=== PATIENT | male | born 1955 | race Caucasian/White ===

== ENCOUNTER 2020-06-07 13:58 | Outpatient (REF) | payer OTHER, SELFPAY ==
[2020-06-07 19:24] LABS: Anion Gap 11.2 mmol/L (3-11); BUN 19 mg/dL (7-18); CO2 24.8 mmol/L (21.0-32.0); CREATININE 0.78 mg/dL (0.70-1.30); Calcium 9.3 mg/dL (8.5-10.1); Calculated LDL 50 mg/dL (<100); Chloride 104 mmol/L (98-107); Cholesterol 132 mg/dL (<200); Glucose 84 mg/dL (74-106); HDL Cholesterol 58 mg/dL (40-60); Potassium 4.4 mmol/L (3.5-5.1); Sodium 140 mmol/L (136-145); Triglyceride 124 mg/dL (<150)
[2020-06-10 09:35] LABS: PSA, Screening 0.4 ng/mL (0-4.5)
== END 2020-06-07 14:18 ==
LOC: NCHCN 13:58
PROVIDERS: PCP Physician Assistant; Visit Provider Physician Assistant
DX: Z00.00 Encounter for general adult medical examination without abnormal findings (principal); Z13.220 Encounter for screening for lipoid disorders; Z13.228 Encounter for screening for other metabolic disorders; Z12.5 Encounter for screening for malignant neoplasm of prostate
CPT/HCPCS: 80048; 80061; 84153

== ENCOUNTER 2020-08-10 01:59 | Outpatient (CLI) | payer OTHER, SELFPAY ==
--- NOTE | 2020-08-10 09:11 | DI.RAD_ITS ---
EXAM: XR CHEST 2V PA LATERAL CLINICAL HISTORY: ATRIAL FIBRILLATION WITH RAPID RESPONSE,I48.91 TECHNIQUE: 2D digital imaging was performed. COMPARISON: No exams were available for comparison FINDINGS: MEDIASTINUM: Normal. HEART: Normal. PULMONARY VASCULATURE: Normal. LUNGS: There is a rounded density projected over the 7th rib anteriorly. This may represent a nipple shadow. A pulmonary nodule cannot be excluded. Linear opacity is seen in the left lung base. PLEURAL SPACE: No pleural effusion or pneumothorax. BONE:Within normal limits for the patient's age. OTHER FINDINGS:There is elevation of the left hemidiaphragm. IMPRESSION: 1. Nodular density projected over the right lung base. This may represent a nipple shadow. Pulmonar y nodule cannot be excluded. A follow-up frontal view of the chest with nipple markers is recommende d for further evaluation. 2. Linear opacity in the left lung base. This may represent scarring, atelectasis or pneumonia. Ple ase correlate clinically. A follow-up chest x-ray may be obtained to document resolution. DATA REPOSITORY: RADIATION DOSE DELIVERED:
== END 2020-08-10 02:19 ==
PROVIDERS: PCP Physician Assistant; Visit Provider Physician Assistant
DX: I48.91 Unspecified atrial fibrillation (principal); R91.8 Other nonspecific abnormal finding of lung field
CPT/HCPCS: 71046

== ENCOUNTER 2020-08-15 01:41 | Outpatient (CLI) | payer OTHER, SELFPAY ==
--- NOTE | 2020-08-15 12:51 | DI.US_ITS ---
APPROVED REPORT EXAM: Comprehensive 2D, Doppler, and color-flow Echocardiogram Patient Location: Out-Patient Stevedoring Superintendent: Lacey Oviedo RDCS (AE) Indications: Atrial Fibrillation with rapid response Other Information Study Quality: Adequate Conclusion Left Ventricle : The left ventricle is normal size. The left ventricular systolic function is normal. The left ventricular ejection fraction is within the normal range. There is normal left ventricular wall thickness. There is normal LV segmental wall motion. The left ventricular diastolic function is normal. LVEF is 50-55%. Right Ventricle : Right ventricle is borderline dilated. The right ventricular systolic function is n ormal. The RVSP is 27.4 mmHg. Atria : Left atrium is moderately dilated. Right atrium is mildly dilated. Mitral Valve : The mitral valve is normal in structure. Mild to moderate mitral regurgitation. No angelina dence of mitral valve stenosis. Great Vessels : The aortic root is normal in size. The ascending aorta is mildly dilated. Aortic arch is normal in caliber. The IVC collapses <50% with inspiration. There is no prior study available for comparison. Wall motion Left Ventricle The left ventricle is normal size. The left ventricular systolic function is normal. The left ventric ular ejection fraction is within the normal range. There is normal left ventricular wall thickness. T here is normal LV segmental wall motion. The left ventricular diastolic function is normal. There is no ventricular septal defect visualized. LVEF is 50-55%. Right Ventricle Right ventricle is borderline dilated. The right ventricular systolic function is normal. The RVSP is 27.4 mmHg. Atria Left atrium is moderately dilated. Right atrium is mildly dilated. The interatrial septum is intact w ith no evidence for an atrial septal defect. Aortic Valve The aortic valve is normal in structure. Aortic valve is trileaflet. There is no aortic valvular sten osis. No aortic regurgitation is present. Mitral Valve The mitral valve is normal in structure. No evidence of mitral valve stenosis. Mild to moderate deepali l regurgitation. Tricuspid Valve The tricuspid valve is normal in structure. There is no tricuspid valve stenosis. Mild tricuspid regu rgitation. Pulmonic Valve The pulmonary valve is normal in structure. There is no pulmonic valvular stenosis. Trace pulmonic re gurgitation. Great Vessels The aortic root is normal in size. The ascending aorta is mildly dilated. Aortic arch is normal in ca liber. The IVC collapses <50% with inspiration. Pericardium There is no pericardial effusion. 2D Dimensions IVSD d PLAX 1.11 cm M: 0.6-1.2 LV Vol A2C d MOD 63.2 mL LVPW d PLAX 1.10 cm M: 0.6 - 1.2 LV Vol A4C d MOD 85.1 mL LVID d PLAX 4.31 cm M: 4.2 - 5.8 LA vol/ BSA A2C s A-L 39.5 mL/m2 LVDs 3.20 cm M: 2.5 - 4.0 LA vol/ BSA A4C s A-L 33.0 mL/m2 Ao Root d 3.46 cm M: 3.1 - 3.7 LA Vol/ BSA Biplane s A-L 36.5 mL/m2 RA Area A4C 13.60 cm2 LA Area A4C s MOD 21.29 cm2 RA Vol/ BSA A4C s A-L 15.9 mL/m2 LA Area A2C s MOD 23.07 cm2 Ao Asc Diam d 3.86 cm M: 2.6 - 3.4 LV EF A4C MOD 50.2 % LV EF Teichholz 50.0 % LV EF A2C MOD 54.0 % LVEF (Aceves's) 52.32 % M: 52 - 72 LV EF Biplane MOD 52.3 % LV Volume 56.12 mL M: 62 - 150 SV 38.68 mL LV Volume Index 29.07 mL/m2 M: 34 - 74 SV Index 20.05 mL/m2 LV Vol Biplane MOD 73.9 mL FS 25.15 % M-Mode TAPSE 2.18 cm (M/F) >1.7 LV Diastology MV E' medial 0.108 (>0.07 m/s) MV E Vmax 0.92 (0.4-1.3 m/s) LV E/e MED 8.50 (<14) MV E' lateral 0.176 (>0.1 m/s) LV E/e LAT 5.20 (<14) MV E/E' medial 8.55 MV E/E' lateral 5.22 Aortic Valve LVOT Area 3.03 cm2 AoV Area Vmax 2.96 cm2 LVOT Vmax 0.92 m/s AoV Area/ BSA (Vmax) 1.54 cm2/m2 LVOT Mean Oz. 0.68 m/s GIUSEPPE Mean Oz. 2.78 cm2 LVOT Peak Grad 3.4 mmHg GIUSEPPE Mean Oz. Index 1.44 cm2/m2 LVOT Mean Grad 2.0 mmHg LVOT VTI 0.147 m LVOT Diam s 1.95 cm AoV Vmax 0.94 m/s Velocity Ratio 0.97 AoV Mean Oz. 0.75 m/s AoV Peak Grad 3.5 mmHg LVOT SV 44.70 mL AoV Mean Grad 2.3 mmHg AoV VTI 0.161 m AoV Area VTI 2.78 cm2 AoV Area/ BSA (VTI) 1.44 cm/m2 Mitral Valve MV DT 249 (160-240 msec) MR Vmax 3.89 m/s MV PHT 72 msec MR VTI 1.288 m MV Area PHT 3.05 cm2 MR Peak Grad 60.7 mmHg MV VTI 0.202 m MR Mean Grad 47.5 mmHg MV VTI Annulus 0.211 m MR PISA Radius 0.66 cm MV Area VTI 2.31 (4.0-6.0 cm2) MR EROA 0.24 cm2 MR Aliasing Velocity 0.35 m/s MR PISA 2.70 cm2 Pulmonary Valve PV Vmax 0.97 (0.5-1.5 m/s) RVOT Peak Gr. 0.52 mmHg PV Peak Grad 3.8 mmHg RVOT Mean Gr. 0.25 mmHg PV Mean Grad 1.8 mmHg RVOT VTI 0.064 m PV VTI 0.160 m RVOT Vmax 0.36 m/s Tricuspid Valve TR Peak Grad 19.3 mmHg TR Vmax 2.20 m/s RA Pressure 8.00 mmHg RVSP (TR) 27.4 mmHg
== END 2020-08-15 02:01 ==
PROVIDERS: PCP Physician Assistant; Visit Provider Physician Assistant
DX: I34.0 Nonrheumatic mitral (valve) insufficiency (principal)
CPT/HCPCS: 93306

== ENCOUNTER 2021-06-13 16:21 | Outpatient (REF) | payer OTHER, SELFPAY ==
[2021-06-13 16:45] LABS: Anion Gap 13.2 mmol/L (3-11); BUN 21 mg/dL (7-18); CO2 22.8 mmol/L (21.0-32.0); CREATININE 0.7 mg/dL (0.70-1.30); Calcium 9.2 mg/dL (8.5-10.1); Chloride 106 mmol/L (98-107); Glucose 99 mg/dL (74-106); Hemoglobin A1C 5.6 % (<5.7); Potassium 4.6 mmol/L (3.5-5.1); Sodium 142 mmol/L (136-145)
[2021-06-13 22:27] LABS: PSA, Screening 0.3 ng/mL (0.0-4.5)
== END 2021-06-13 16:22 | disposition home or self-care (01) ==
LOC: NCHCN 16:21
PROVIDERS: PCP Physician Assistant; Visit Provider Physician Assistant
DX: R73.03 Prediabetes (principal); Z12.5 Encounter for screening for malignant neoplasm of prostate; Z00.00 Encounter for general adult medical examination without abnormal findings
CPT/HCPCS: 80048; 84153; 83036

== ENCOUNTER 2023-07-05 17:57 | Outpatient (REF) | payer MEDICARE, SELFPAY ==
[2023-07-05 15:31] LABS: HCT 43.5 % (40.0-50.0); HGB 15.4 g/dL (13.5-17.5); MCH 29.6 pg (27.0-33.0); MCHC 35.4 % (32.0-36.0); MCV 84 fL (80-95); MPV 10.6 fL (8.0-11.0); Platelet Count 250 10^3/uL (130-400); RDW 12.5 % (11.8-14.1); RDW-SD 38.2 fL; WBC 5.76 10^3/uL (4.4-10.8)
[2023-07-05 15:38] LABS: Anion Gap 8.1 mmol/L (3-11); BUN 14 mg/dL (7-18); CO2 24.9 mmol/L (21.0-32.0); CREATININE 0.6 mg/dL (0.70-1.30); Calcium 8.7 mg/dL (8.5-10.1); Chloride 103 mmol/L (98-107); Estimated GFR 106.46 (mL/min/1.73m2); Glucose 116 mg/dL (74-106); Potassium 3.8 mmol/L (3.5-5.1); Sodium 136 mmol/L (136-145)
--- OUTSIDE RECORDS SUMMARY | 2023-07-05 18:03 | XMS_ITS | CCD ---
Author Name Unknown Address [address] [place] [address] [phone] Organization Unknown Address [address] [place] [address] [id number] Care Team Providers Care Agronomy Teacher Name Role Phone DAY MENDOZA Attending Physician [phone] DAY MENDOZA Rounding (Secondary) Physician [phone] Vital Signs Unknown or Not Available. Allergies Allergy Code Allergy Type Reaction Status No Known Drug Allergies 0 No known drug allergies Active Procedures Unknown or Not Available. History of Immunizations Unknown or Not Available. Problems Problem Code Start Date Resolved Date Status Osteoarthrosis, localized, n ot specified whether primary or secondary, involving lower leg [id number] Active Esophageal reflux [id number] Active Results Unknown or Not Available. Active Medications Unknown or Not Available. Medications Administered During Visit Unknown or Not Available. Encounters Encounter Diagnosis Diagnosis Code Start Date Unspecified injury of right lower leg, initial e ncounter [id number] 04/18/2022 Social History Smoking Status Code Start Date End Date Former smoker [id number] 07/22/1986 Patient Decision Aids Unknown or Not Available. Discharge Instructions You were admitted to [facility] on 04/18/2022 15:00 with a principal diagnosis of Injury of right knee You were discharged from [facility] on 04/18/2022 00:00 Should you have any questions prior to discharge, please contact a member of your healthcare team. If you have left the hospital and have any questions, please contact your primary care physician. Chief Complaint and Reason For Visit Unknown or Not Available. Function Status Unknown or Not Available. Plan of Care Unknown or Not Available. Referral/Transition of Care Unknown or Not Available.
--- OUTSIDE RECORDS SUMMARY | 2023-07-05 18:04 | XMS_ITS | CCD ---
Author Name Unknown Address [address] [place] [address] [phone] Organization Unknown Address [address] [place] [address] [phone] Care Team Providers Care Electromechanical Equipment Tester Name Role Phone TONIO BLANDON Attending Physician [phone] TONIO BLANDON Rounding (Secondary) Physician [phone] Vital Signs Unknown or Not Available. Allergies Allergy Code Allergy Type Reaction Status No Known Drug Allergies 0 No known drug allergies Active Procedures Unknown or Not Available. History of Immunizations Unknown or Not Available. Problems Problem Code Start Date Resolved Date Status Osteoarthrosis, localized, n ot specified whether primary or secondary, involving lower leg [id number] Active Esophageal reflux [id number] Active Results Unknown or Not Available. Active Medications Unknown or Not Available. Medications Administered During Visit Unknown or Not Available. Encounters Encounter Diagnosis Diagnosis Code Start Date Other persistent atrial fibrillation [id number] 07/12/2021 Social History Smoking Status Code Start Date End Date Former smoker [id number] 07/22/1986 Patient Decision Aids Unknown or Not Available. Discharge Instructions You were admitted to [facility] on 07/12/2021 10:18 with a principal diagnosis of Other persistent atrial fibrillation You were discharged from [facility] on 07/12/2021 00:00 Should you have any questions prior [...]
--- OUTSIDE RECORDS SUMMARY | 2023-07-05 18:04 | XMS_ITS | CCD ---
Author Name Unknown Address [address] [place] [address] [phone] Organization Unknown Address [address] [place] [address] [id number] Care Team Providers Care Roll Scale Worker Name Role Phone TONIO BLANDON Attending Physician [phone] TONIO BLANDON Rounding (Secondary) Physician [phone] Vital Signs Unknown or Not Available. Allergies Allergy Code Allergy Type Reaction Status No Known Drug Allergies 0 No known drug allergies Active Procedures Unknown or Not Available. History of Immunizations Unknown or Not Available. Problems Problem Code Start Date Resolved Date Status Osteoarthrosis, localized, n ot specified whether primary or secondary, involving lower leg [id number] Active Esophageal reflux [id number] Active Results Unknown or Not Available. Active Medications Unknown or Not Available. Medications Administered During Visit Unknown or Not Available. Encounters Encounter Diagnosis Diagnosis Code Start Date Other persistent atrial fibrillation [id number] 09/14/2021 Social History Smoking Status Code Start Date End Date Former smoker [id number] 07/22/1986 Patient Decision Aids Unknown or Not Available. Discharge Instructions You were admitted to [facility] on 09/14/2021 11:47 with a principal diagnosis of Other persistent atrial fibrillation You were discharged from [facility] on 09/14/2021 00:00 Should you have any questions prior [...]
== END 2023-07-05 17:58 | disposition home or self-care (01) ==
LOC: NCHCN 17:57
PROVIDERS: PCP Physician Assistant; Visit Provider Physician Assistant
DX: I95.9 Hypotension, unspecified (principal)
CPT/HCPCS: 80048; 85027

== ENCOUNTER → 2023-12-06 00:57 | Outpatient (CLI) | payer MEDICARE, SELFPAY ==
--- NOTE | 2023-12-06 12:30 | DI.US_ITS ---
APPROVED REPORT EXAM: Comprehensive 2D, Doppler, and color-flow Echocardiogram Patient Location: Out-Patient Pencils Washer: Asif Armijo RDCS (AE) Indications: Cardiomyopathy Conclusion Normal left ventricular wall thickness and chamber size. Ejection fraction is 55%. There are no seg mental wall motion abnormalities Normal right ventricular size and function Both atria are normal in size There are no structural valvular abnormalities Trace aortic and mitral regurgitation Mild tricuspid regurgitation. Estimated right ventricular systolic pressure is 28 mmHg Ascending aorta measures 3.7 cm Wall motion Left Ventricle The left ventricle is normal size. The left ventricular systolic function is normal. The left ventric ular ejection fraction is within the normal range. There is normal left ventricular wall thickness. T here is normal LV segmental wall motion. There is no ventricular septal defect visualized. LVEF is 55 %. Right Ventricle The right ventricle is normal size. The right ventricular systolic function is normal. Atria The left atrium size is normal. The right atrium size is normal. The interatrial septum is intact wit h no evidence for an atrial septal defect. Aortic Valve The aortic valve is normal in structure. Aortic valve is trileaflet. There is no aortic valvular sten osis. Trace aortic regurgitation. Mitral Valve The mitral valve is normal in structure. No evidence of mitral valve stenosis. Trace mitral regurgita tion. Tricuspid Valve The tricuspid valve is normal in structure. There is no tricuspid valve stenosis. Mild tricuspid regu rgitation. The RVSP is 28.1 mmHg. Pulmonic Valve The pulmonary valve is normal in structure. There is no pulmonic valvular stenosis. Trace pulmonic re gurgitation. Great Vessels The aortic root is normal in size. The ascending aorta is mildly dilated. Aortic arch is normal in ca liber. IVC is normal in size and collapses >50% with inspiration. Pericardium There is no pericardial effusion. 2D Dimensions IVSD d PLAX 0.75 cm M: 0.6-1.2 Ao Root d 3.70 cm M: 3.1 - 3.7 LVPW d PLAX 0.75 cm M: 0.6 - 1.2 Ao Asc Diam d 3.70 cm M: 2.6 - 3.4 LVID d PLAX 4.31 cm M: 4.2 - 5.8 LVDs 3.04 cm M: 2.5 - 4.0 LV EF Teichholz 56.7 % FS 29.49 % LV EDV (Teich) 83.6 mL LV ESV (Teich) 36.2 mL Stroke Vol Index (Teich) 24.72 M-Mode TAPSE 2.52 cm (M/F) >1.7 Auto EF LV EDV A4C 117.6 mL LV EDV A2C 82.5 mL LV EDV BP 101.0 mL LV ESV A4C 54.1 mL LV ESV A2C 36.2 mL LV ESV BP 46.5 mL LVEF(%) A4C 54.0 % LVEF(%) A2C 56.1 % LVEF(%) BP 54.0 % LV SV A4C 63.5 ml LV SV A2C 46.3 ml LV SV BP 54.5 ml LV CO A4C 4.9 L/min LV CO A2C 3.4 L/min LV CO BP 4.2 L/min HR A4C 77.59 BPM HR A2C 73.33 BPM LV EDV Index (BP) LA Volume LA Length A4C 5.6 cm LA Length A2C 3.8 cm LA Area A4C s 18.91 cm2 LA Area A2C s 10.87 cm2 LA Vol A4C A-L 53.87 mL LA Vol A2C A-L 26.65 mL LA Vol Biplane A-L 46.4 mL LA Vol/BSA A4C A-L LA Vol/BSA A2C A-L LA Vol/BSA BP A-L 24.1 mL/m2 LA Vol A4C MOD 51.0 mL LA Vol A2C MOD 25.3 mL LA Vol BP MOD 43.2 mL LV Diastology MV E' medial 0.079 (>0.07 m/s) MV E' lateral 0.087 (>0.1 m/s) Aortic Valve AoV Vmax 1.06 m/s LVOT Vmax 0.83 m/s AoV Peak Grad 4.5 mmHg LVOT Peak Grad 2.8 mmHg AoV Area (Vmax) 3.01 cm2 LVOT VTI 0.188 m AoV VTI 0.227 m LVOT Mean Grad 1.7 mmHg AoV Mean Oz. 0.73 m/s LVOT SV 72.45 mL AoV Mean Grad 2.4 mmHg LVOT Diam s 2.20 cm AoV Area (VTI) 3.20 cm2 Velocity Ratio 0.78 Pulmonary Valve PV Vmax 1.15 (0.5-1.5 m/s) RVOT Vmax 0.60 m/s PV Peak Grad 5.3 mmHg RVOT Peak Gr. 1.4 mmHg PV Mean Oz 0.73 m/s RVOT VTI 0.126 m PV Mean Grad 2.5 mmHg RVOT Mean Gr. 0.7 mmHg Tricuspid Valve RA Pressure 3.00 mmHg TR Vmax 2.51 m/s TR Peak Grad 25.1 mmHg RVSP (TR) 28.1 mmHg
== END ==
PROVIDERS: PCP Physician Assistant; Visit Provider Internal Medicine Clinical Cardiac Electrophysiology
DX: I42.9 Cardiomyopathy, unspecified (principal)
CPT/HCPCS: 93306

== ENCOUNTER 2025-07-06 09:51 | Outpatient (REF) | payer MEDICARE, SELFPAY ==
[2025-07-06 15:39] LABS: HCT 46.9 % (40.0-50.0); HGB 15.8 g/dL (13.5-17.5); MCH 29.2 pg (27.0-33.0); MCHC 33.7 % (32.0-36.0); MCV 87 fL (80-95); MPV 10.6 fL (8.0-11.0); Platelet Count 285 10^3/uL (130-400); RBC 5.42 10^6/uL (4.36-5.78); RDW 12.8 % (11.8-14.1); RDW-SD 40.2 fL; WBC 6.86 10^3/uL (4.4-10.8)
[2025-07-06 16:22] LABS: ALT 24 U/L (10-49); AST 20 U/L (<34); Albumin 4.2 g/dL (3.2-5.0); Alkaline Phosphatase 72 U/L (46-116); Anion Gap 11 mmol/L (3-11); BUN 12 mg/dL (9-23); Bilirubin, Total 0.7 mg/dL (0.2-1.2); CO2 25.0 mmol/L (20.0-31.0); Calcium 9.4 mg/dL (8.3-10.6); Chloride 107 mmol/L (98-107); Cholesterol 125 mg/dL (<200); Glucose 92 mg/dL (74-106); HDL Cholesterol 51 mg/dL (>40); Potassium 4.3 mmol/L (3.5-5.1); Sodium 143 mmol/L (136-145); Total Protein 6.8 g/dL (5.7-8.2)
[2025-07-06 17:11] LABS: Hemoglobin A1C 5.2 % (<5.7)
[2025-07-06 23:43] LABS: PSA, Screening 0.4 ng/mL (<=4.5)
== END 2025-07-06 09:52 | disposition home or self-care (01) ==
LOC: NCHCN 09:51
PROVIDERS: PCP Physician Assistant; Visit Provider Physician Assistant
DX: Z12.5 Encounter for screening for malignant neoplasm of prostate (principal); R73.03 Prediabetes
CPT/HCPCS: 80053; 80061; 84153; 85027; 83036